=== PATIENT | female | born 1970 | race Caucasian/White ===

== ENCOUNTER → 2018-12-08 | Outpatient (CLI) | payer BC, OTHER ==
[2018-12-08 14:32] VITALS: BP 126/85; PULSE 86; TEMP 98; BMI 30.4
--- NOTE | 2018-12-08 16:40 | P.HPBAR ---
Bariatric H&P - History & Physicial H&P Date: 12/08/18 History & Physicial: Visit/CC: weight gain, increased heart burn, dysphagia Patient initial contact: Initial weight: 97.522 kg Initial weight in pounds: 215.00 Height: 5 ft 2 in Initial BMI: 39.3 Last weight: Current weight: 75.432 kg Current weight in pounds: 166.30 Current BMI: 30.4 [place] body weight (based on NIH guidelines): 75.432 kg Excess body weight loss: 100.0% The patient is a 48 year-old F who presents for Bariatric Assessment. Patient presents today for sleeve gastrectomy fall. She's had exacerbation of GERD. She is requesting omeprazole. She states she's had GERD for several years. Past Medical History Past Medical History: Asthma Additional Past Medical History / Comment(s): difficulty swallowing History of Any Multi-Drug Resistant Organisms: None Reported Past Surgical History: Bariatric Surgery, Cholecystectomy, Hysterectomy, Orthopedic Surgery Additional Past Surgical History / Comment(s): LAP band placed in 2006, removed 2013 (along with gallbladder) and revised to sleeve on 08/10/15. Total of 3 lumbar surgeries (latest oct 2016: L1-L5 fusion). EGD WITH DILATION 08/29/16 Past Anesthesia/Blood Transfusion Reactions: No Reported Reaction Smoking Status: Current every day smoker - Past Family History Father Family Medical History: Coronary Artery Disease (CAD) Additional Family Medical History / Comment(s): at age 65 from pulmonary fibrosis and secondary heart issues (had 14 stents) Mother Additional Family Medical History / Comment(s): has cystic breasts (all lumpectomies have resulted in benign results) however patient's maternal grandmother had both breast and bone cancer. Surgical - Exam Vital Signs Temp Pulse BP 98.0 F 86 126/85 12/08/18 14:10 12/08/18 14:10 12/08/18 14:10 - General well developed, no distress - Eyes PERRL - Abdomen Abdomen: soft, non tender Bariatric Assessment & Plan Plan: The patient has significant.. She'll be scheduled for an EGD. She will also undergo esophagram. We have prescribed omeprazole 40 mg by mouth daily. Bariatric Checklist Checklist: Plan: Checklist: EGD: 1. Hiatal hernia: 2. H. Pylori: HgbA1c: Vitamin D: Smoking: Current every day smoker Primary care physician referral: Hi Orosco ([place], [place]) Psychiatry clearance: Cardiology clearance: Sleep study: Diet journal: VTE risk score: VTE risk level: Rehab needs at discharge:
== END ==
LOC: BARWHC3 13:52
PROVIDERS: ATTEND Surgery
DX: Z48.815 Encounter for surgical aftercare following surgery on the digestive system (principal); K21.9 Gastro-esophageal reflux disease without esophagitis; Z98.84 Bariatric surgery status; Z90.49 Acquired absence of other specified parts of digestive tract; Z90.710 Acquired absence of both cervix and uterus; F17.200 Nicotine dependence, unspecified, uncomplicated
CPT/HCPCS: 99211

== ENCOUNTER → 2019-01-28 | Outpatient (CLI) | payer OTHER ==
--- NOTE | 2019-01-28 11:49 | FL ---
EXAMINATION TYPE: FL barium swallow DATE OF EXAM: 01/28/2019 LIMITED UGI: CLINICAL HISTORY: History of lap band surgery years ago with conversion to sleeve 3 years ago presen ts with dysphasia, food getting stuck epigastric region per patient. Persistent epigastric pain despi te on two reflux medications per patient. TECHNIQUE: Limited esophagram is performed utilizing 20 oz of Omnipaque 350. A total of 39 seconds o f fluoroscopic time was utilized during procedure. COMPARISON: Prior esophagram August 15, 2016. FINDINGS: Preprocedure drama professor image shows postsurgical change L2-L5 level with posterior fusion hardw are and laminectomy defects and spinous process resection. Cholecystectomy clips are seen. There are surgical clips and sutures epigastric region from gastric sleeve surgery per patient. Overall nonobst ructive bowel gas pattern. The patient swallowed contrast without difficulty or delay. Esophageal peristalsis and motility are felt satisfactory. There is good flow of contrast along the diaphragmatic hiatus into proximal stoma ch there is abnormal debris-filled prominent gastric remnant proximal to the proximal anastomosis of sleeve. There is poor flow into sleeve at proximal anastomosis with repeated episodes of gastroesopha geal reflux into the distal half of the esophagus which patient states is causing symptoms during clair l-time scanning. After waiting just over 6 minutes there is some flow of contrast into proximal small bowel loops but significant portion of contrast in the proximal gastric remnant. Real-time scanning and after drinking more contrast does not show good flow of contrast into sleeve to identify or evalu ate sleeve including proximal and distal anastomosis. At this point procedure was terminated. No extr avasation to suggest leak is noted. IMPRESSION: Abnormal study with prominent proximal gastric pouch just below diaphragm and poor flow o r severe obstruction at proximal anastomosis of gastric sleeve with multiple episodes of gastroesopha geal reflux noted. Consider direct visualization via endoscopy to better evaluate proximal anastomosi s.
[2019-01-28 12:10] LABS: HCT 48.9 % (34.0-46.0); HGB 15.1 gm/dL (11.4-16.0); MCH 30.3 pg (25.0-35.0); MCHC 30.9 g/dL (31.0-37.0); Platelet Count 320 k/uL (150-450); RBC 4.99 m/uL (3.80-5.40); RDW 12.2 % (11.5-15.5); WBC 10.8 k/uL (3.8-10.6)
[2019-01-28 12:25] LABS: ALT 25 U/L (9-52); AST 23 U/L (14-36); Albumin 4.2 g/dL (3.5-5.0); Alkaline Phosphatase 88 U/L (38-126); Anion Gap 10 mmol/L; Blood Urea Nitrogen 11 mg/dL (7-17); Calcium 9.6 mg/dL (8.4-10.2); Carbon Dioxide 23 mmol/L (22-30); Chloride 110 mmol/L (98-107); Glucose 102 mg/dL (74-99); Potassium 4.8 mmol/L (3.5-5.1); Sodium 143 mmol/L (137-145); Total Bilirubin 0.4 mg/dL (0.2-1.3); Total Protein 7.4 g/dL (6.3-8.2)
[2019-01-28 19:26] LABS: Iron Saturation 9.58 (12.00-45.00)
== END | disposition home or self-care (01) ==
LOC: RADFLWHC 10:13
PROVIDERS: ATTEND Surgery
DX: K21.9 Gastro-esophageal reflux disease without esophagitis (principal); K31.4 Gastric diverticulum; R93.3 Abnormal findings on diagnostic imaging of other parts of digestive tract; D50.8 Other iron deficiency anemias; E66.01 Morbid (severe) obesity due to excess calories; E55.9 Vitamin D deficiency, unspecified; Z98.84 Bariatric surgery status
CPT/HCPCS: 74220; 80053; 82306; 82607; 83540; 83550; 84425; 85027

== ENCOUNTER → 2019-02-23 | Outpatient (CLI) | payer OTHER ==
[2019-02-23 13:33] VITALS: BP 148/88; PULSE 75; RESP 16; TEMP 98.2; BMI 29.2
--- NOTE | 2019-02-23 13:53 | P.HPBAR ---
Bariatric H&P - History & Physicial H&P Date: 02/23/19 History & Physicial: Visit/CC: sleeve follow-up Patient initial contact: Initial weight: 97.522 kg Initial weight in pounds: 215.00 Height: 5 ft 2 in Initial BMI: 39.3 Last weight: Current weight: 72.575 kg Current weight in pounds: 160.00 Current BMI: 29.2 [place] body weight (based on NIH guidelines): 49.895 kg Excess body weight loss: 52.3% The patient is a 48 year-old F who presents for Bariatric Assessment. The patient presents today for sleeve gastrectomy follow-up. She has complaints of GERD. Her recent esophagram shows a dilated proximal gastric pouch. Past Medical History Past Medical History: Asthma Additional Past Medical History / Comment(s): difficulty swallowing History of Any Multi-Drug Resistant Organisms: None Reported Past Surgical History: Bariatric Surgery, Cholecystectomy, Hysterectomy, Orthopedic Surgery Additional Past Surgical History / Comment(s): LAP band placed in 2006, removed 2013 (along with gallbladder) and revised to sleeve on 08/10/15. Total of 3 lumbar surgeries (latest oct 2016: L1-L5 fusion). EGD WITH DILATION 08/29/16 Past Anesthesia/Blood Transfusion Reactions: No Reported Reaction Past Psychological History: Depression Smoking Status: Current every day smoker Past Alcohol Use History: Occasional Additional Past Alcohol Use History / Comment(s): on and off smoker 12 years 3 cig/day Past Drug Use History: None Reported - Past Family History Father Family Medical History: Coronary Artery Disease (CAD) Additional Family Medical History / Comment(s): at age 65 from pulmonary fibrosis and secondary heart issues (had 14 stents) Mother Additional Family Medical History / Comment(s): has cystic breasts (all lumpectomies have resulted in benign results) however patient's maternal grandmother had both breast and bone cancer. Surgical - Exam Vital Signs Temp Pulse Resp BP 98.2 F 75 16 148/88 02/23/19 13:27 02/23/19 13:27 02/23/19 13:27 02/23/19 13:27 - General well developed, well nourished, no distress - Eyes PERRL - ENT normal pinna - Neck no masses - Respiratory normal expansion - Cardiovascular Rhythm: regular - Abdomen Abdomen: soft, non tender Bariatric Assessment & Plan Plan: Status post sleeve gastrectomy. Patient has had GERD. Her esophagram shows a dilated proximal gastric pouch. The patient will be scheduled for EGD with p ossible dilatation of sleeve. Bariatric Checklist Checklist: Plan: Checklist: EGD: 1. Hiatal hernia: 2. H. Pylori: HgbA1c: Vitamin D: Smoking: Current every day smoker Primary care physician referral: Hi Orosco ([place], [place]) Psychiatry clearance: Cardiology clearance: Sleep study: Diet journal: VTE risk score: VTE risk level: Rehab needs at discharge:
== END ==
LOC: BARWHC3 12:55
PROVIDERS: ATTEND Surgery
DX: Z48.815 Encounter for surgical aftercare following surgery on the digestive system (principal); K21.9 Gastro-esophageal reflux disease without esophagitis; Z98.84 Bariatric surgery status; Z90.49 Acquired absence of other specified parts of digestive tract; Z90.710 Acquired absence of both cervix and uterus
CPT/HCPCS: 99211

== ENCOUNTER 2019-03-12 08:15 | Day surgery (SDC) | payer OTHER ==
[2019-03-10 14:37] VITALS: BMI 28.3
[~2019-03-12 08:15] MED LIST: LACTATED RINGERS 1,000 ML IV SCH
[2019-03-12 08:46] VITALS: TEMP 97.9
[2019-03-12] MEDS ORDERED: LIDOCAINE 1% 20 ML VIAL (10MG/ML) FOR IV START INTRADERMA ONE (08:55)
[2019-03-12] MEDS ORDERED: PROPOFOL 10 MG/ML 20 ML VIAL IV ONE (09:42)
[2019-03-12] MEDS ORDERED: GLYCOPYRROLATE 0.2 MG/ML 2 ML VIAL ONE (09:42)
[2019-03-12] MEDS ORDERED: LIDOCAINE 1% INJ 10MG/ML (20 ML MDV) ONE (09:42)
--- NOTE | 2019-03-12 10:41 | P.GSHP ---
History of Present Illness H&P Date: 03/12/19 Chief Complaint: GERD, dysphagia This a 48-year-old female who presents today for EGD. She's had issues with GERD and dysphagia. She has a previous history of sleeve gastrectomy Past Medical History Past Medical History: Asthma Additional Past Medical History / Comment(s): difficulty swallowing History of Any Multi-Drug Resistant Organisms: None Reported Past Surgical History: Bariatric Surgery, Cholecystectomy, Hysterectomy, Orthopedic Surgery Additional Past Surgical History / Comment(s): LAP band placed in 2006, removed 2013 (along with gallbladder) and revised to sleeve on 08/10/15. Total of 3 lumbar surgeries (latest oct 2016: L1-L5 fusion). EGD WITH DILATION 08/29/16 Past Anesthesia/Blood Transfusion Reactions: No Reported Reaction Smoking Status: Current every day smoker - Past Family History Father Family Medical History: Coronary Artery Disease (CAD) Additional Family Medical History / Comment(s): at age 65 from pulmonary fibrosis and secondary heart issues (had 14 stents) Mother Additional Family Medical History / Comment(s): has cystic breasts (all lumpectomies have resulted in benign results) however patient's maternal grandmother had both breast and bone cancer. Medications and Allergies Home Medications Medication Instructions Recorded Confirmed Type Cholecalciferol [Vitamin D3] 1,000 unit PO DAILY 08/15/16 03/10/19 History Cyanocobalamin [Vitamin B-12] 500 mcg PO DAILY 08/15/16 03/10/19 History Esomeprazole Magnesium [NexIUM] 20 mg PO DAILY 08/15/16 03/12/19 History Ibuprofen [Advil] 200 mg PO Q6HR PRN 08/15/16 03/10/19 History Multivitamins, Thera [Multivitamin] 1 tab PO DAILY 08/15/16 03/10/19 History Omeprazole 40 mg PO DAILY #60 capsule. 12/08/18 03/12/19 Rx Allergies Allergy/AdvReac Type Severity Reaction Status Date / Time No Known Allergies Allergy Verified 03/12/19 08:34 Surgical - Exam Vital Signs Temp Pulse Resp BP Pulse Ox 97.9 F 71 18 126/75 98 03/12/19 08:45 03/12/19 08:45 03/12/19 08:45 03/12/19 08:45 03/12/19 08:45 - General well developed, well nourished, no distress - Eyes PERRL - ENT normal pinna - Neck no masses - Respiratory normal expansion - Cardiovascular Rhythm: regular - Abdomen Abdomen: soft, non tender Assessment and Plan Assessment: GERD, dysphagia. We'll perform EGD.
--- NOTE | 2019-03-12 10:42 | P.OP ---
Date of Procedure: 03/12/19 Preoperative Diagnosis: GERD, dysphagia Postoperative Diagnosis: Dilated gastric sleeve Procedure(s) Performed: EGD Anesthesia: MAC Surgeon: Yoni Houston Pathology: none sent Condition: stable Disposition: PACU Description of Procedure: The patient's placed on the endoscopy table in the lateral position. She received IV sedation. The gastroscope placed oropharynx passed in the esophagus and into the stomach. Scope then placed through the pylorus into the first and second portion of the duodenum. The scope was then brought back the antrum this appeared normal. The patient a previous history of sleeve gastrectomy. There appeared to some dilatation of the sleeve. A 20 mm balloon was placed near the antrum. The balloon was inflated to 20 mm. The balloon was easily passed throughout the entire sleeve. There appeared to be no evidence of any focal stricture of the sleeve. The balloon was then withdrawn. The GE junction was at 40 cm. The distal esophagus appeared normal. The proximal esophagus appeared normal. Scope was withdrawn for patient.
[2019-03-12 10:52] VITALS: RESP 16
[2019-03-12 11:07] VITALS: BP 142/90; PULSE 66
== END 2019-03-12 11:23 | disposition home or self-care (01) ==
LOC: ORWHC2ENDO 08:15
PROVIDERS: ATTEND Surgery
DX: K31.89 Other diseases of stomach and duodenum (principal); K21.9 Gastro-esophageal reflux disease without esophagitis; Z98.84 Bariatric surgery status; J45.909 Unspecified asthma, uncomplicated; F17.200 Nicotine dependence, unspecified, uncomplicated; Z80.3 Family history of malignant neoplasm of breast; Z80.8 Family history of malignant neoplasm of other organs or systems; Z79.899 Other long term (current) drug therapy
CPT/HCPCS: 43245; J2001; J2704; C1726; 43249